=== PATIENT | male | born 1955 | race Asian ===

== ENCOUNTER 2024-03-27 08:41 | Outpatient (CLI) | payer BC | END 2024-03-27 18:20 | disposition home or self-care (01) | LOC: SCT 08:41 | PROVIDERS: ATTEND Orthopaedic Surgery | DX: M17.11 Unilateral primary osteoarthritis, right knee (principal) ==

== ENCOUNTER 2024-05-02 09:21 | Day surgery (SDC) | payer BC ==
[~2024-05-02] VITALS: Ht 167.6 cm; Wt 74.9 kg
[~2024-05-02 09:21] MED LIST: CEFAZOLIN SOD 2 GM in D5W 50 ML IV ONE
[2024-05-02] MEDS ORDERED: ACETAMINOPHEN 500 MG TABLET ONE (09:32)
[2024-05-02] MEDS: ACETAMINOPHEN 500 MG TABLET PO ONE (10:05)
[2024-05-02] MEDS ORDERED: oxyCODONE HCL 5 MG TABLET PO PRN ×2 (11:00)
[2024-05-02] MEDS ORDERED: HYDROmorphone 1 MG/ML INJ. CARTRIDGE IVP PRN ×3 (11:00)
[2024-05-02] MEDS ORDERED: LORATADINE 10 MG TABLET PO PRN (11:00)
[2024-05-02] MEDS ORDERED: traMADol HCL HCL 50 MG TABLET (ULTRAM) PO PRN (11:00)
[2024-05-02] MEDS ORDERED: ceFAZolin SODIUM 2 GM in D5W 50 ML IV SCH (11:15)
[2024-05-02] MEDS ORDERED: METOCLOPRAMIDE HCL 10 MG/2 ML VIAL ONE (11:45)
[2024-05-02] MEDS ORDERED: ONDANSETRON HCL 4 MG/2 ML VIAL ONE (11:45)
[2024-05-02] MEDS ORDERED: BUPIVACAINE /DEX PF 0.75% SPINAL 2 ML AMP INJ ONE (11:45)
[2024-05-02] MEDS ORDERED: GLYCOPYRROLATE 0.2 MG/ML VIAL ONE (11:45)
[2024-05-02] MEDS ORDERED: WATER FOR IRRIGATION,STERILE 1,000 ML IRRIG.SOLN IR ONE (11:45)
[2024-05-02] MEDS ORDERED: ROPIVACAINE HCL/PF 5 MG/ML 0.5% 30 ML VIAL ONE (11:45)
[2024-05-02] MEDS ORDERED: NS IRRIG SOLN 1000 ML IR ONE (11:45)
[2024-05-02] MEDS ORDERED: TRANEXAMIC ACID 1,000 MG/10 ML VIAL ONE (11:45)
[2024-05-02] MEDS ORDERED: LR 1,000 ML IV.SOLN IV ONE (11:45)
[2024-05-02] MEDS ORDERED: ONDANSETRON HCL 4 MG/2 ML VIAL IVP PRN (11:45)
[2024-05-02] MEDS ORDERED: MIDAZOLAM HCL 2 MG/2 ML VIAL (VERSED) ONE (11:58)
[2024-05-02 12:12] VITALS: PULSE 71; RESP 16; TEMP 97.2; O2SAT 97
[2024-05-02] MEDS ORDERED: LACTULOSE 20 GM/30 ML UDC PO PRN (15:00)
[2024-05-02] MEDS ORDERED: DIPHENHYDRAMINE HCL 25 MG CAPSULE PO PRN (15:00)
[2024-05-02] MEDS ORDERED: BISACODYL 10 MG/SUPPOSITORY RC PRN (15:00)
[2024-05-02] MEDS ORDERED: METOCLOPRAMIDE HCL 10 MG/2 ML VIAL IVP PRN (15:00)
[2024-05-02 20:46] VITALS: BP_SYST 140
[2024-05-02] MEDS ORDERED: SENNOSIDES/DOCUSATE SODIUM 1 TAB TABLET(SENOKOT-S) PO SCH (21:00)
[2024-05-02] MEDS ORDERED: ACETAMINOPHEN 500 MG TABLET PO SCH (22:00)
[2024-05-03] MEDS ORDERED: ASPIRIN 81 MG TAB.CHEW PO SCH (09:00)
== END 2024-05-02 17:48 | disposition home or self-care (01) ==
LOC: EDBD → SDS 09:21 → SMU 09:22 → EDUNIT# 10:45 → SDS 17:48
PROVIDERS: ATTEND Orthopaedic Surgery
DX: M17.11 Unilateral primary osteoarthritis, right knee (principal); M25.761 Osteophyte, right knee; M25.561 Pain in right knee; I10 Essential (primary) hypertension; G89.18 Other acute postprocedural pain; E78.5 Hyperlipidemia, unspecified; K21.9 Gastro-esophageal reflux disease without esophagitis; Z79.899 Other long term (current) drug therapy
CPT/HCPCS: 27447; 97162; 86886; 97530; 97110; 97116; 86900; 86901; 36415; 73560; 82948; 64447; J3490 ×3; J0690; J2765; J2250; J2405; J7060; J7120; C1776 ×4; C1713 ×2